=== PATIENT | male | born 1995 ===

== ENCOUNTER 2016-10-29 17:33 | Emergency (ER) | payer BC ==
[2016-10-29] MEDS ORDERED: Ibuprofen TAB* 400 MG PO ONE (18:28)
--- NOTE | 2016-10-29 19:27 | RAD ---
INDICATION: Right and pain after punching a wall COMPARISON: None. TECHNIQUE: 4 views of the right hand were obtained. FINDINGS: There is a minimally displaced fracture at the distal pole of the right fifth finger metacarpal. There is slight angulation with the apex pointed towards the dorsal hand. The remaining visualized bones are intact and properly aligned. IMPRESSION: Radiographic findings are consistent with a minimally displaced "boxer's fracture" involving the distal right fifth metacarpal.
--- NOTE | 2016-11-06 18:34 | UC ---
Hand/Wrist HPI - HPI Summary HPI Summary: punched a wall with right hand about 3 hours ago, pain and swelling 3/4 knuckles - History Of Current Complaint Chief Complaint: UCUpperExtremity Stated Complaint: RIGHT HAND INJURY Time Seen by Provider: 10/29/16 18:24 Hx Obtained From: Patient ?: No Mechanism Of Injury: punched a wall Onset/Duration: Sudden Onset, Lasting Hours Severity Initially: Mild Severity Currently: Mild Pain Intensity: 2 Pain Scale Used: 0-10 Numeric Character Of Pain: Dull, Aching Aggravating Factor(s): Movement Alleviating: Rest, Ice Associated Signs And Symptoms: Positive: Swelling Related History: Dominant Hand Right - Allergies/Home Medications Allergies/Adverse Reactions: Allergies Allergy/AdvReac Type Severity Reaction Status Date / Time Anesthetics, Amide Allergy Rash Verified 10/29/16 17:52 Anesthetics, Lora Allergy Rash Verified 10/29/16 17:52 Anesthetics, Halogenated Allergy Rash Verified 10/29/16 17:52 PMH/Surg Hx/FS Hx/Imm Hx Previously Healthy: Yes - Surgical History Surgical History: None - Family History Known Family History: Positive: None Family History: no cardio vascular issues reported in family lineage - Social History Occupation: Employed Full-time Lives: With Family Alcohol Use: Weekly Substance Use Type: None Smoking Status (MU): Current Every Day Smoker Cessation Counseling: Counseled 3+Min - 10 Min Review of Systems Constitutional: Negative Skin: Negative Eyes: Negative ENT: Negative Respiratory: Negative Cardiovascular: Negative Gastrointestinal: Negative Genitourinary: Negative Motor: Negative Neurovascular: Negative Musculoskeletal: Negative - hand especially 3/4 knuckles, Arthralgia Neurological: Negative Psychological: Negative All Other Systems Reviewed And Are Negative: Yes Physical Exam Triage Information Reviewed: Yes Appearance: Well-Appearing, No Pain Distress, Well-Nourished Vital Signs: Initial Vital Signs Temp 98.8 F 10/29/16 17:50 Pulse 63 10/29/16 17:50 Resp 16 10/29/16 17:50 BP 119/58 10/29/16 17:50 Pulse Ox 100 10/29/16 17:50 Vital Signs Reviewed: Yes Eye Exam: Normal Eyes: Positive: Conjunctiva Clear ENT Exam: Normal ENT: Positive: Normal ENT inspection, Hearing grossly normal, TMs normal. Negative: Nasal congestion, Nasal drainage, Tonsillar swelling, Tonsillar exudate, Trismus, Muffled/hoarse voice Dental Exam: Normal Neck exam: Normal Neck: Positive: Supple, Nontender, No Lymphadenopathy Respiratory Exam: Normal Respiratory: Positive: Chest non-tender, Lungs clear, Normal breath sounds, No respiratory distress, No accessory muscle use Cardiovascular Exam: Normal Cardiovascular: Positive: RRR, No Murmur, Pulses Normal, Brisk Capillary Refill Musculoskeletal Exam: Normal Musculoskeletal: Positive: Strength Intact, ROM Intact, No Edema Neurological Exam: Normal Neurological: Positive: Alert, Muscle Tone Normal, Fatigued Psychological Exam: Normal Skin Exam: Normal Diagnostics - Radiology No standard instances Xray Interpretation: Positive (See Comments) - Minimally displased fracture 5 MC Radiology Interpretation Completed By: Radiologist Hand/Wrist Course/Dx - Course Course Of Treatment: ulnar gutter splint, sling, pain control, rice follow with ortho 3 days - Differential Dx/Diagnosis Differential Diagnosis/HQI/PQRI: Bursitis, Contusion, Fracture, Sprain, Strain Provider Diagnoses: Right 5th MC Fracture, nicotine dependent Discharge - Discharge Plan Condition: Stable Disposition: HOME Prescriptions: HYDROcodone/ACETAMIN 5-325 MG* [Edwards 5-325 TAB*] 1 tab PO Q6H PRN #10 tab MDD 4 PRN Reason: pain Ibuprofen TAB* [Motrin TAB* 600 MG] 600 mg PO Q6H PRN #40 tab PRN Reason: pain Patient Education Materials: Boxer Fracture (ED), RICE Therapy (ED) Forms: *Work Release Referrals: Joes GORDONPGretel [Primary Care Provider] - Alessandra Rangel MD [Medical Doctor] - 3 Days
== END 2016-10-29 19:06 | disposition home or self-care (01) ==
LOC: UCEAST 17:33
DX: S62.306A Unspecified fracture of fifth metacarpal bone, right hand, initial encounter for closed fracture (principal); W22.01XA Walked into wall, initial encounter; F17.210 Nicotine dependence, cigarettes, uncomplicated; Z88.4 Allergy status to anesthetic agent
CPT/HCPCS: 99202; A9270-GY; G0463